=== PATIENT | female | born 1960 | race Caucasian/White ===

== ENCOUNTER 2017-02-07 12:49 | Emergency (ER) | payer OTHER, BC ==
--- NOTE | 2017-02-07 13:13 | CR ---
Clinical history: 56-year-old female chest pain. Interpretation: Bronchovascular markings accentuated by less than optimal inspiratory effort. No focal lobar pneumonia, atelectasis/collapse, pleural effusion or pneumothorax. Phyllis thorax unrema rkable. Normal cardiac silhouette without alveolar edema or dependent pleural effusion. CONCLUSION: Mild bronchitis. No signs of heart failure or lobar pneumonia. No pneumothorax.
[2017-02-07 13:25] LABS: CHLORIDE,CL 103 mmol/L (101-111); SODIUM,NA 138 mmol/L (135-145)
[2017-02-07] MEDS ORDERED: HYDROmorphone 1 MG/ML Syringe IVPUSH ONE (13:29)
[2017-02-07] MEDS ORDERED: Sodium Chloride 0.9% 10 ML Syringe FLUSH SCH (14:00)
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
--- NOTE | 2017-02-09 12:24 | EKG ---
02/07/2017 - ARMIDA BARAKAT - This 12-lead EKG shows normal sinus rhythm with sinus tachycardia with heart rate of 100. No significant ST elevation or ST depression noted on this 12-lead EKG. Nonspecific ST-T wave changes noted on lead V2 and V3. [facility] /[id number]
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
== END 2017-02-07 15:16 | disposition home or self-care (01) ==
LOC: DL.ED 12:49
DX: S20.219A Contusion of unspecified front wall of thorax, initial encounter (principal); S60.011A Contusion of right thumb without damage to nail, initial encounter; V89.2XXA Person injured in unspecified motor-vehicle accident, traffic, initial encounter
CPT/HCPCS: 36415; 71010; 73140; 80053; 84484; 85025; 93005; 94010; 96374; 99284; J1170; J7050